=== PATIENT | female | born 1965 | race Caucasian/White ===

== ENCOUNTER → 2020-03-31 09:42 | Outpatient (BNVA) | payer OTHER, SELFPAY | PROVIDERS: Family Provider Electrodiagnostic Medicine; PCP Electrodiagnostic Medicine; Referring Provider Electrodiagnostic Medicine; Visit Provider Podiatrist Foot & Ankle Surgery | DX: M79.671 Pain in right foot (principal); M79.672 Pain in left foot | CPT/HCPCS: 77077 ==

== ENCOUNTER 2020-08-11 15:06 | Outpatient (CLI) | payer OTHER, SELFPAY | END 2020-08-11 15:07 | disposition home or self-care (01) | LOC: SPT 15:07 | PROVIDERS: Family Provider Electrodiagnostic Medicine; PCP Electrodiagnostic Medicine; Visit Provider Podiatrist Foot & Ankle Surgery | DX: Z46.89 Encounter for fitting and adjustment of other specified devices (principal); M76.61 Achilles tendinitis, right leg | CPT/HCPCS: L4397 ==

== ENCOUNTER 2022-02-26 13:57 | Outpatient (CLI) | payer OTHER, SELFPAY ==
--- NOTE | 2022-02-26 14:15 | US_ITS ---
WS: [id number] Thyroid ultrasound, 02/26/2022 Clinical Data: Thyroid nodule Comparison: Thyroid ultrasound, 09/18/2018. Findings: The right lobe of thyroid measures 2.6 cm x 1.1 cm x 0.9 cm. There is a small nodule of mixed echogen icity measuring 0.55 x 0.59 0.84 cm in the inferior pole The left lobe measures 5.1 cm x 2.3 cm x 2.0 cm. In the superior pole there is a nodule of low echoge nicity measuring 0.30 x 1.00 x 1.20 cm. There are 2 nodules in the mid pole of the left thyroid, one measuring 0.92 x 1.47 x 1.81 cm and the other 0.96 x 1.50 x 1.98 cm. The isthmus measured 0.5 mm. There is a lymph node in the right cervical chain measuring 0.54 x 1.22 x 1.68 cm. US/US thyroid [id number] Impression: 1. Small right lobe of thyroid with history of thyroidectomy. 2. Multinodular goiter. 3. Single right cervical lymph node.
== END 2022-02-26 13:58 | disposition home or self-care (01) ==
LOC: RAD 13:59
PROVIDERS: PCP Family Medicine; Visit Provider Family Medicine
DX: E04.2 Nontoxic multinodular goiter (principal); E89.0 Postprocedural hypothyroidism
CPT/HCPCS: 76536

== ENCOUNTER 2023-04-01 14:12 | Outpatient (CLI) | payer OTHER, SELFPAY ==
--- NOTE | 2023-04-01 14:30 | XR_ITS ---
WS: [id number] SCREENING DEXA SCAN [facility] CLINICAL INFORMATION: Screening COMPARISON: None. FINDINGS: The L1-L4 bone mineral density measures 1.534 g/cm2. This corresponds to a T score score of 2.9 and Z score of 3.1. Left femoral neck bone mineral density measures 1.084 g/cm2. This corresponds to a T score of 0.6 and Z score of 0.8. Right femoral neck bone mineral density measures 1.062 g/cm2. This corresponds to a T score 0.4of and Z score of 0.6. Mean femoral neck bone mineral density measures 1.073 g/cm2. This corresponds to a T score of 0.5 and Z score of 0.7. IMPRESSION: Normal bone mineralization. Patient's FRAX calculated 10 year probability for major osteoporotic fracture is 5.8% and osteoporoti c hip fracture is 0.2%.
== END 2023-04-01 14:13 | disposition home or self-care (01) ==
PROVIDERS: PCP Family Medicine; Visit Provider Family Medicine
DX: Z78.0 Asymptomatic menopausal state (principal)
CPT/HCPCS: 77080

== ENCOUNTER 2024-01-06 07:26 | Outpatient (RCR) | payer OTHER, SELFPAY | END 2024-01-11 23:59 | disposition home or self-care (01) | LOC: SPT 07:26 | PROVIDERS: PCP Family Medicine; Visit Provider Family Medicine | DX: M54.16 Radiculopathy, lumbar region (principal) | CPT/HCPCS: 97161 ==

== ENCOUNTER 2024-01-12 06:00 | Outpatient (RCR) | payer OTHER, SELFPAY | END 2024-02-11 23:59 | disposition home or self-care (01) | LOC: SPT 06:00 | PROVIDERS: PCP Family Medicine; Visit Provider Family Medicine | DX: M54.16 Radiculopathy, lumbar region (principal) | CPT/HCPCS: 97110; 97530 ==